=== PATIENT | female | born 1995 | race African-American/Black ===

== ENCOUNTER 2018-09-02 16:18 | Emergency (ER) | payer OTHER ==
[~2018-09-02] VITALS: Ht 160 cm; Wt 49.0 kg
[~2018-09-02 16:18] MED LIST: AMOX TR-K CLV1 EAC3 PO
[2018-09-02 17:09] LABS: ABSOLUTE NEUTROPHILS 4.2 thou/uL (1.4-8.2); BASOPHILS 0.4 % (0.0-2.0); EOSINOPHILS 0.3 % (0.0-3.0); HEMATOCRIT 37.6 % (37.0-47.0); HEMOGLOBIN 12.9 gm/dL (12.0-15.0); MCH 28.2 pg (26.0-34.0); MCHC 34.3 g/dL (28.0-37.0); MCV 82.2 fL (80.0-100.0); MONOCYTES 5.9 % (1.0-8.0); PLATELET COUNT 195 thou/uL (150-400); POLYS 68.4 % (36.0-66.0); RBC 4.58 mil/uL (4.20-5.00); RDW 12.8 % (10.5-14.5); WBC 6.2 thou/uL (4.0-11.0)
[2018-09-02 17:24] LABS: ANION GAP 13 mmol/L (7-16); BUN 9 mg/dL (7-18); CALCIUM 9.4 mg/dL (8.5-10.1); CHLORIDE 103 mmol/L (98-107); CO2 25 mmol/L (21-32); CREATININE 0.9 mg/dL (0.6-1.0); GLUCOSE 81 mg/dL (74-106); POTASSIUM 3.1 mmol/L (3.5-5.1); SODIUM 141 mmol/L (136-145)
[2018-09-02 17:30] LABS: ALBUMIN 4.6 g/dL (3.4-5.0); SALICYLATE 3.8 mg/dL (2.8-20.0); SGOT 30 U/L (15-37); SGPT 23 U/L (30-65); TOTAL BILIRUBIN 0.6 mg/dL (<0.1-1.0); TOTAL PROTEIN 8.2 g/dL (6.4-8.2)
[2018-09-02 18:05] LABS: URINE BILIRUBIN NEGATIVE (Negative); URINE BLOOD NEGATIVE (Negative); URINE CLARITY SLIGHTLY CLOUDY; URINE COLOR YELLOW; URINE GLUCOSE-RANDOM* NEGATIVE (Negative); URINE KETONES 1+ (Negative); URINE LEUKOCYTES NEGATIVE (Negative); URINE NITRITE NEGATIVE (Negative); URINE PROTEIN (DIPSTICK) NEGATIVE (Negative); URINE SPECIFIC GRAVITY 1.025 (1.005-1.035); URINE UROBILINOGEN 0.2 E.U./dl (0.2-1.0)
[2018-09-02 18:10] LABS: AMP/METHAMP Negative (Negative); BARBITURATES Negative (Negative); BENZODIAZEPINES Negative (Negative); COCAINE Negative (Negative); METHADONE Negative (Negative); OPIATES Negative (Negative); PCP Negative (Negative)
[2018-09-02] MEDS ORDERED: IBUPROFEN 600600 M1 PO (21:02)
[2018-09-02 21:11] VITALS: BP 95/53
== END 2018-09-02 21:11 | disposition home or self-care (01) ==
LOC: ER 16:18
PROVIDERS: Physician Assistant
DX: S20.211A Contusion of right front wall of thorax, initial encounter (principal); S40.021A Contusion of right upper arm, initial encounter; S40.022A Contusion of left upper arm, initial encounter; R45.1 Restlessness and agitation; F17.210 Nicotine dependence, cigarettes, uncomplicated; Z91.048 Other nonmedicinal substance allergy status; Z90.89 Acquired absence of other organs; Y04.2XXA Assault by strike against or bumped into by another person, initial encounter; Y92.89 Other specified places as the place of occurrence of the external cause; Y93.89 Activity, other specified; Y99.8 Other external cause status